=== PATIENT | male | born 1970 | race Hispanic/Latino ===

== ENCOUNTER 2025-03-26 16:07 | Emergency (ER) | payer OTHER ==
[~2025-03-26] VITALS: Ht 177.8 cm; Wt 139.7 kg
[~2025-03-26 16:07] MED LIST: IBUPROFEN800 MG PO; KEFLEX500 MG PO
[2025-03-26 18:15] VITALS: BP 152/76
== END 2025-03-26 18:15 | disposition left against medical advice (07) ==
LOC: ED 16:07
DX: Z53.21 Procedure and treatment not carried out due to patient leaving prior to being seen by health care provider (principal)